=== PATIENT | male | born 1940 | race Caucasian/White ===

== ENCOUNTER 2020-07-09 00:43 | Emergency (ER) | payer MEDICARE, SELFPAY ==
--- NOTE | ~2020-07-09 | CT_ITS ---
EXAMINATION: CT ABDOMEN AND PELVIS WITHOUT CONTRAST CLINICAL INFORMATION: Left flank pain. COMPARISON: Multiple prior exams are reviewed. The most recent is from 03/28/2019. TECHNIQUE: Contiguous axial thin section helical images of the abdomen and pelvis were performed without oral or IV contrast. The data set was reformatted in the coronal and sagittal planes and reviewed on an independent workstation. DLP: 555 mGy-cm. FINDINGS: The visualized lung bases are clear. The visualized portions of the heart are unremarkable. 36 (. The liver is of normal size and attenuation without focal lesions nor intrahepatic biliary ductal dilation. A normal gallbladder is identified. There is no wall thickening or discernible pericholecystic fluid. The spleen, pancreas, adrenal glands are unremarkable. Both kidneys are of normal size and attenuation. Within the lower pole of the right kidney, there is a 4 mm nonobstructive calculus. There is no right-sided hydronephrosis. There is left grade 2 hydroureteronephrosis secondary to an obstructive 3 mm distal left ureteral calculus. There is mild left perinephric stranding. There is no abdominal free fluid. There is neither mesenteric nor retroperitoneal lymphadenopathy. There are mild manifestations of diverticulosis without evidence of diverticulitis; otherwise, unremarkable unopacified loops of small and large bowel are identified. There is no pelvic free fluid. The urinary bladder is unremarkable. There is neither pelvic nor inguinal lymphadenopathy. Bone windows: Neither sclerotic nor lytic bone lesions are identified. CT/CT abdomen pelvis wo con IMPRESSION: Left grade 2 hydroureteronephrosis secondary to an obstructive 3 mm distal left ureteral calculus. Cholelithiasis without evidence of cholecystitis. Diverticulosis without active diverticulitis. Automated exposure control (Care Dose) Adjustment of the mA and/or kv according to patient size (this includes techniques or standardized protocols for targeted exams where dose is matched to indication / reason for exam; i.e. extremities or head).
[2020-07-09 00:46] VITALS: BP 191/80; PULSE 56; RESP 18; TEMP 36.7; O2SAT 98; BMI 26.6
[2020-07-09 02:00] VITALS: BP 154/62; PULSE 52; RESP 18; TEMP 37.1; O2SAT 99
--- NOTE | 2020-07-09 02:11 | ED_ITS ---
HPI - Male Genitourinary General Chief complaint: Urogenital-Male Stated complaint: Flank pain Time Seen by Provider: 07/09/20 01:57 Source: patient Mode of arrival: ambulatory Limitations: no limitations History of Present Illness HPI Narrative: 79-year-old male came in with left flank pain, started 12 hours ago, described it as left flank sharp pain that is constant but weaning and waxing, describe pain as severe (10/10), pain was associated with nausea, nothing makes the pain worse, nothing makes the pain better. Patient had similar pain in the past but was on the right side and patient had a history of diagnosed right kidney stone. Related Data Previous Rx's Medication Instructions Recorded oxycodone 5 mg PO BID PRN #10 cap 07/09/20 Allergies Allergy/AdvReac Type Severity Reaction Status Date / Time No Known Allergies Allergy Verified 07/09/20 00:46 [No Known Allergies*] Review of Systems Review of Systems: All other systems are reviewed and are negative Constitutional: Reports as per HPI and Reports no additional constitutional complaints Eyes: Reports as per HPI and Reports no additional eye complaints Reports system reviewed and no additional complaints, except as documented Cardiovascular: Reports as per HPI and Reports no additional cardiovascular complaints Respiratory: Reports as per HPI and Reports no additional respiratory complaints Gastrointestinal: Reports as per HPI and Reports no additional gastrointestinal complaints Genitourinary: Reports no additional female genitourinary complaints Musculoskeletal: Reports no additional musculoskeletal complaints Skin/Breast: Reports system reviewed and no additional complaints, except as docu Psychiatric: Reports no additional psychiatric complaints Endocrine: Reports no additional endocrine complaints Hematologic/Lymphatic: Reports no additional hematologic/lymphatic complaints Allergic/Immunologic: Reports no additional allergic/immunologic complaints Reports system reviewed and no additional complaints, except as documented and Reports Abnormal speech present [facility] Past Medical History Medical History Kidney stones Surgical History S/P hernia repair Social History Social History Alcohol intake: never Smoking Status: Light tobacco smoker Use of substances other than those prescribed or required for medical reasons: No Advance Directives: No Advance Directives Information Provided: No Physical Exam Vital Signs: Vital Signs: Last Vital Signs Temp 98.7 F 07/09/20 02:00 Pulse 52 07/09/20 02:00 Resp 18 07/09/20 02:00 BP 154/62 H 07/09/20 02:00 Pulse Ox 99 07/09/20 02:00 Body Mass Index 26.6 Vital signs have been reviewed as normal and appeared to be correct. Blood pressure in the high range. Heart rate normal. Respiration rate normal. Temperature normal. Oxygen saturation normal. Appearance: Alert. Oriented X3. No acute distress. Head: Normal external exam. Normocephalic. Atraumatic. No Harkins signs noted. No raccoon eyes noted Eyes: PERRLA. EOMI. Conjunctiva and sclera normal. Eyelids normal. ENT: TM's Normal. Pharynx normal. Uvula midline. Moist mucous membranes. No trismus noted. No drooling noted. No muffled voice noted. Neck: Normal inspection. Neck supple. FROM. No adenopathy. Thyroid Normal. No meningeal signs. No neck mass noted. CVS: Normal heart rate and rhythm. Heart sound normal. No murmurs noted. Pulses normal throughout. Respiratory: No respiratory distress. Painless inspiration. Breath sounds normal. No wheezes/rales/rhonchi noted. Chest nontender. No accessory muscle usage noted or decreased air movement noted. Abdomen: Soft and nontender. Bowel sounds normal in all 4 quadrants. No distention noted. No organomegaly noted. No visible injury noted. Back: L CVA tenderness. Full range of motion noted. Skin: Skin warm and dry. Normal skin color. Normal skin turgor. No rashes/lesions/lacerations noted. Extremities: No lower extremity edema. Extremities exhibit normal range of motion. Extremities nontender. Neuro: Oriented X 3. No motor deficit. No sensory deficit. Reflexes normal. Course Course Course Narrative: Assessment and plan. 79-year-old male presented with left flank pain, patient had history of right kidney stone and follow up with Dr. Shukla urologist, CT is consistent with 3 mm obstructing left ureteric stone, BUN creatinine is slightly elevated from baseline for the patient, UA is not consistent with infection, patient now is comfortable able to urinate in the emergency department, no pain. I discussed with the patient at length the the importance of drinking plenty of fluids to help normalize the renal function test and forcing the renal stone out. Patient also will arrange an appointment with his urologist this week. Patient was instructed to return if the pain is uncontrollable with the pain medication. MDM - Male Genitourinary Lab Data Attestation: I reviewed the patient's lab results. Result diagrams: 07/09/20 02:07/09/20 02:27 Labs: Lab Results 07/09/20 07/09/20 07/09/20 Range/Units 02: 02: 02:27 WBC 14.5 H (4.8-10.8) X10*3/uL RBC 4.89 (4.60-5.80) X10*6/uL Hgb 15.0 (14.0-18.0) g/dl Hct 45.0 (42-52) % MCV 92.0 (80-98) fL MCH 30.7 (27.0-33.0) pg MCHC 33.3 (31.0-36.0) g/dl RDW 12.8 (11.0-16.0) % Plt Count 271 (160-400) X10*3/uL MPV 10.7 (9.4-12.4) fL Immature Gran % (Auto) 0.2 (0.0-0.4) % Neut % (Auto) 93.9 H (45-73) % Lymph % (Auto) 3.2 L (20-40) % [place] % (Auto) 2.6 (2-11) % Eos % (Auto) 0.0 (0-4) % Baso % (Auto) 0.1 (0-2) % Lymph # (Auto) 0.5 L (1.2-4.9) X10*3/uL [place] # (Auto) 0.4 (0.1-1.2) X10*3/uL Eos # (Auto) 0.0 (0.0-0.4) X10*3/uL Baso # (Auto) 0.0 (0.0-0.2) X10*3/uL Abs Immat Gran (auto) 0.03 (0.00-0.03) X10*3/uL Absolute Neuts (auto) 13.6 H (2.0-8.3) X10*3/uL Absolute Nucleated RBC 0.000 (0.0-0.012) X10*3/uL Nucleated RBC % (auto) 0.0 (0.0-0.2) /100WBC Smear Tech's Comments VERIFIED Sodium 141 (135-145) mmol/L Potassium 4.2 (3.3-5.1) mmol/L Chloride 107 (96-108) mmol/L Carbon Dioxide 23 (22-29) mmol/L Anion Gap 15 (12-20) BUN 23 H (9-16) mg/dL Creatinine 1.42 H (0.5-1.4) mg/dL Estim Creat Clear Calc 40.7 Estimated GFR 48 Random Glucose 177 H (60-115) mg/dL Calcium 8.8 (8.4-10.2) mg/dL Total Bilirubin 0.8 (0.0-1.0) mg/dL Direct Bilirubin 0.4 (0.0-0.5) mg/dL AST 18 (5-37) U/L ALT 28 (0-40) U/L Alkaline Phosphatase 76 (39-117) U/L Total Protein 6.9 (6.5-8.0) g/dL Albumin 4.4 (3.5-5.0) g/dL Lipase 9 (8-78) U/L Urine Color YELLOW Urine Appearance HAZY Urine pH 5.5 (5.0-8.0) Ur Specific [place] >= 1.030 H (1.005-1.025) Urine Protein TRACE (NEG-TRACE) MG/DL Urine Glucose (UA) NEG (NEG) MG/DL Urine Ketones 15 (NEG) MG/DL Urine Blood 3+ H (NEG) Urine Nitrite NEG (NEG) Ur Leukocyte Esterase NEG (NEG) Urine RBC 50-75 H (0) /HPF Urine WBC 1-4 (0-4) /HPF Ur Squamous Epith Cells 1+ /LPF Urine Bacteria 1+ /LPF Urine Mucus 1+ /LPF Imaging Data CT scan - abdomen: Radiologist's impression: Left grade 2 hydroureteronephrosis secondary to an obstructive 3 mm distal left ureteral calculus. Cholelithiasis without evidence of cholecystitis. Diverticulosis without active diverticulitis. Discharge Plan Discharge Clinical Impression: Renal colic on left side, Calculus of left ureter, Abnormal kidney function Patient Disposition: Home, Self-Care Instructions: Ureteral Stones (ED) Additional Instructions: Follow-up with your own urologist this week. Drink plenty of fluids to help improve your kidney function test and passing the stone. Prescriptions: New oxycodone 5 mg capsule 5 mg PO BID PRN (Reason: pain) Qty: 10 RF: 0 Referrals: López Madera MD [Primary Care Provider] - 2 days
[2020-07-09 02:32] LABS: Basophils Percent Auto 0.1 % (0-2); Imm Gran Abs Auto 0.03 X10*3/uL (0.00-0.03); Imm Gran Pct Auto 0.2 % (0.0-0.4); Lymphocytes Absolute Auto 0.5 X10*3/uL (1.2-4.9); Lymphocytes Percent Auto 3.2 % (20-40); MANUAL DIFF FLAG SCAN; Mean Corpuscular HGB Conc 33.3 g/dl (31.0-36.0); Mean Corpuscular Hemoglobin 30.7 pg (27.0-33.0); Mean Platelet Volume 10.7 fL (9.4-12.4); Monocytes Absolute Auto 0.4 X10*3/uL (0.1-1.2); Monocytes Percent Auto 2.6 % (2-11); Neutrophils Absolute Auto 13.6 X10*3/uL (2.0-8.3); Neutrophils Percent Auto 93.9 % (45-73); Platelet Count 271 X10*3/uL (160-400); Red Blood Count 4.89 X10*6/uL (4.60-5.80); Red Cell Distribution Width 12.8 % (11.0-16.0); SCAN SMEAR FLAG 1; White Blood Count 14.5 X10*3/uL (4.8-10.8)
[2020-07-09 02:33] LABS: Glucose Urine UA NEG (NEG); Leukocyte Esterase Urine NEG (NEG); Nitrite Urine NEG (NEG); PH 5.5 (5.0-8.0); Specific Gravity - Urine >= 1.030 (1.005-1.025); Urine Blood 3+ (NEG); Urine Ketones 15 MG/DL (NEG); Urine Protein TRACE MG/DL (NEG-TRACE)
[2020-07-09 02:34] LABS: Appearance Urine HAZY; Color Urine YELLOW; SLIDE REVIEW VERIFIED
[2020-07-09] MEDS: Morphine Sulfate 2 MG/ML CARTRIDGE 1 MG IVPUSH (02:36)
[2020-07-09] MEDS: Ketorolac Tromethamine 15 MG/ML VIAL IV (02:36)
[2020-07-09] MEDS: 0.9 % Sodium Chloride 1,000 ML 999 ML IVCONT (02:37)
[2020-07-09 02:44] LABS: Bacteria Urine 1+ /LPF; Mucus Urine 1+ /LPF; RBC Urine 50-75 /HPF (0); Squamous Epithelial Cell Urine 1+ /LPF
[2020-07-09 03:13] LABS: Alanine Aminotransferase 28 U/L (0-40); Albumin Level 4.4 g/dL (3.5-5.0); Alkaline Phosphatase 76 U/L (39-117); Anion Gap 15 (12-20); Aspartate Amino Transferase 18 U/L (5-37); Bilirubin Direct 0.4 mg/dL (0.0-0.5); Bilirubin Total 0.8 mg/dL (0.0-1.0); Blood Urea Nitrogen 23 mg/dL (9-16); Calcium 8.8 mg/dL (8.4-10.2); Carbon Dioxide 23 mmol/L (22-29); Chloride 107 mmol/L (96-108); Creatinine Clr Calc Pharmacy 40.7; Estimated Glomerular Filt Rate 48; Glucose Random 177 mg/dL (60-115); Lipase 9 U/L (8-78); Potassium 4.2 mmol/L (3.3-5.1); Sodium 141 mmol/L (135-145); Total Protein 6.9 g/dL (6.5-8.0)
[2020-07-09 05:47] VITALS: BP 127/64; PULSE 65; RESP 18; O2SAT 96
== END 2020-07-09 06:00 | disposition home or self-care (01) ==
PROVIDERS: Emergency Provider Emergency Medicine; PCP Internal Medicine
DX: N13.2 Hydronephrosis with renal and ureteral calculous obstruction (principal); R79.89 Other specified abnormal findings of blood chemistry; Z87.442 Personal history of urinary calculi
CPT/HCPCS: 36415; 74176; 80048; 80076; 81001; 83690; 85025; 96361; 96374; 96375; 99284; J1885; J2270

== ENCOUNTER 2020-07-10 08:20 | Emergency (ER) | payer MEDICARE, SELFPAY ==
[2020-07-10 08:57] VITALS: BP 166/68; PULSE 62; RESP 16; TEMP 37.3; O2SAT 95; BMI 26.6
--- NOTE | 2020-07-10 09:07 | ED_ITS ---
HPI - Back Pain/Injury General Chief Complaint: Back Pain/Injury Stated Complaint: kidney stone Time Seen by Provider: 07/10/20 08:49 Source: patient Mode of arrival: ambulatory Limitations: no limitations History of Present Illness HPI Narrative: 79-year-old male with a past medical history of renal colic here with left flank pain times several days. The patient tells me he was seen here yesterday and diagnosed with a left renal colic. He was prescribed oxycodone 5 mg and was referred to follow up with his urologist Dr. Shukla. Patient tells me he felt well on discharge yesterday. This morning when he woke up he had some pain and took a dose of oxycodone. 1 hour later he continued to have pain and so he called his family to bring him into the hospital. He denies any nausea or vomiting. He denies any fevers or chills or urinary symptoms. No abdominal pain. He has not spoken to his urologist yet. On arrival he is telling me that his pain is much improved. MD elicited complaint: back pain Related Data Previous Rx's Medication Instructions Recorded oxycodone 5 mg PO BID PRN #10 cap 07/09/20 oxycodone 5 mg PO Q6H PRN #5 tab 07/10/20 Allergies Allergy/AdvReac Type Severity Reaction Status Date / Time No Known Allergies Allergy Verified 07/09/20 00:46 [No Known Allergies*] Review of Systems Review of Systems: Yes all other systems are reviewed and are negative Constitutional: Constitutional: Reports no additional constitutional complaints, Denies body ache(s), Denies chills, Denies fever(s), Denies headache(s) and Denies weakness Eyes: Eyes: Reports no additional eye complaints and Denies change in vision ENT: Reports system reviewed and no additional complaints, except as documented, Denies dizziness, Denies headache(s), Denies nasal congestion, Denies nasal discharge and Denies neck pain Cardiovascular: Cardiovascular: Reports no additional cardiovascular complaints, Denies chest pain, Denies leg edema and Denies dyspnea Respiratory: Respiratory: Reports no additional respiratory complaints, Denies cough and Denies dyspnea Gastrointestinal: Gastrointestinal: Reports no additional gastrointestinal complaints, Denies abdominal pain, Denies diarrhea, Denies nausea and Denies vomiting Genitourinary: Genitourinary: Denies urinary incontinence Musculoskeletal: Musculoskeletal: Reports no additional musculoskeletal complaints, Reports back pain, Denies arthralgias, Denies joint swelling, Denies neck pain, Denies numbness and Denies tingling Integumentary/Breasts: Skin/Breast: Reports system reviewed and no additional complaints, except as docu and Denies rash Neurologic: Reports system reviewed and no additional complaints, except as documented, Denies Abnormal speech present, Denies dizziness, Denies headache(s), Denies numbness, Denies tingling and Denies weakness PMFSH Past Medical History Attestation statement: The following information was validated with the patient. Source: old records reviewed and nursing notes reviewed Medical History Kidney stones Surgical History S/P hernia repair Social History Social History Alcohol intake: never Smoking Status: Light tobacco smoker Advance Directives: No Advance Directives Information Provided: Yes Physical Exam Vital Signs: Vital Signs: Last Vital Signs Temp 99.2 F 07/10/20 08:57 Pulse 62 07/10/20 08:57 Resp 16 07/10/20 08:57 BP 166/68 H 07/10/20 08:57 Pulse Ox 95 07/10/20 08:57 Body Mass Index 26.6 Const: General: cooperative, healthy appearing, comfortable and no acute distress Orientation/consciousness: patient oriented x3 Limitations: no li mitations HENMT: Head: Yes normal to inspection Ears: hearing grossly normal bilaterally General nose exam: Normal external nose present Face and sinus: Yes normal facial exam Mouth: Normal oral and palatal mucosa present Throat: Yes posterior oropharynx normal Eyes: General: appearance normal, both eyes and all related structures Pupils: Equal, round and reactive pupils present Neck: Neck: Yes normal visual inspection Chest: Chest palpation & inspection: normal inspection of the chest Resp: Effort & Inspection: normal respiratory effort Auscultation: clear to auscultation bilaterally Cardio: Rate: regular rate Rhythm: regular rhythm Peripheral pulses: Peripheral pulses 2+ throughout GI: Inspection: Yes normal to inspection Palpation (GI): Soft to palpation and nontender Auscultation: normal bowel sounds : General: Yes CVA tenderness (mild, left ) Back/Spine/Pelvis: Back: CVA tenderness (mild, left ) Thoracic/Lumbar Spine: thoracic and lumbar spine normal to inspection Skin: General skin exam: no rashes or lesions noted Neuro: General: patient oriented x3, no focal motor deficits and normal sensation to monofilament Cranial nerves: Yes Equal, round and reactive pupils present Cognition (Neuro): normal cognition Speech: No Abnormal speech present Gait exam (Neuro): Normal gait present Motor exam (neuro): 5/5 motor strength present throughout Extrem: General: Yes normal to inspection Course Course Course Narrative: Left flank pain since this morning with recent diagnosis of left renal colic yesterday. Took an oxycodone this morning but continued to have pain so brought himself to the emergency department. On arrival he tells me the pain medicine is now working and he feels much improved. He is only telling me that he has very mild pain. Reviewed CT from yesterday 07/09 which shows left grade 2 hydroureteronephrosis secondary to an obstructive 3 mm distal left ureteral calculus. Exam is overall min with benign here today. As patient is feeling much improved I did discuss with him that he will likely pass the kidney stone on his own. I did recommend he follow up with Urology in case this does not happen. He plans to call Dr. Shukla today. I did explain to him that if he has more severe pain unrelieved with oxycodone he should return to the emergency department. He was given 10 tablets of oxycodone and is worried that this may not be enough for him. I did send in 5 more tablets to his pharmacy. Explained to him that he should only pick this up if he runs out of his oxycodone now. Reviewed additional worrisome signs and symptoms of when to return to the emergency department. Comfortable with discharge home. Discharge Plan Discharge Clinical Impression: Renal colic Patient Disposition: Home, Self-Care Instructions: Renal Colic (ED) Additional Instructions: You may take your oxycodone every 6 hrs as needed for pain. Try to keep your pain well controlled. Call Dr Shukla today for an appointment within 1-2 days Return for severe pain unrelieved with oxycodone, 2 or more vomiting episodes, fever >100.4. Prescriptions: New oxycodone 5 mg tablet 5 mg PO Q6H PRN (Reason: pain) Qty: 5 RF: 0 No Action oxycodone 5 mg capsule 5 mg PO BID PRN (Reason: pain) Qty: 10 RF: 0 Interventions: ED Discharge Assessment Last Done: 07/10/20 09:26 Discharge Date/Time: 07/10/20 09:27
== END 2020-07-10 09:27 | disposition home or self-care (01) ==
PROVIDERS: Emergency Provider Emergency Medicine; PCP Internal Medicine
DX: N13.2 Hydronephrosis with renal and ureteral calculous obstruction (principal)
CPT/HCPCS: 99283

== ENCOUNTER 2020-08-24 13:28 | Outpatient (REF) | payer MEDICARE, SELFPAY ==
[2020-08-24 14:39] LABS: Anion Gap 15 (12-20); Blood Urea Nitrogen 20 mg/dL (9-16); Calcium 9.1 mg/dL (8.4-10.2); Carbon Dioxide 25 mmol/L (22-29); Chloride 108 mmol/L (96-108); Estimated Glomerular Filt Rate > 60; Glucose Random 108 mg/dL (60-115); Potassium 4.9 mmol/L (3.3-5.1); Sodium 143 mmol/L (135-145)
== END 2020-08-24 13:29 | disposition home or self-care (01) ==
LOC: HO.LAB 13:28
PROVIDERS: PCP Internal Medicine; Visit Provider Internal Medicine
DX: N20.0 Calculus of kidney (principal); E78.00 Pure hypercholesterolemia, unspecified
CPT/HCPCS: 36415; 80048

== ENCOUNTER 2020-12-22 07:59 | Outpatient (REF) | payer MEDICARE, SELFPAY ==
[2020-12-22 09:11] LABS: MANUAL DIFF FLAG NO
[2020-12-22 09:17] LABS: Basophils Percent Auto 0.4 % (0-2); Eosinophils Absolute Auto 0.1 X10*3/uL (0.0-0.4); Eosinophils Percent Auto 1.9 % (0-4); Hematocrit 47.2 % (42-52); Hemoglobin 15.1 g/dl (14.0-18.0); Imm Gran Abs Auto 0.04 X10*3/uL (0.00-0.03); Imm Gran Pct Auto 0.6 % (0.0-0.4); Lymphocytes Absolute Auto 1.6 X10*3/uL (1.2-4.9); Lymphocytes Percent Auto 22.2 % (20-40); Mean Corpuscular Hemoglobin 29.3 pg (27.0-33.0); Mean Corpuscular Volume 91.7 fL (80-98); Monocytes Absolute Auto 0.9 X10*3/uL (0.1-1.2); Monocytes Percent Auto 11.8 % (2-11); Neutrophils Absolute Auto 4.6 X10*3/uL (2.0-8.3); Neutrophils Percent Auto 63.1 % (45-73); Platelet Count 294 X10*3/uL (160-400); Red Blood Count 5.15 X10*6/uL (4.60-5.80); Red Cell Distribution Width 13.1 % (11.0-16.0); White Blood Count 7.2 X10*3/uL (4.8-10.8)
[2020-12-22 09:52] LABS: Alanine Aminotransferase 26 U/L (0-40); Albumin Level 4.3 g/dL (3.5-5.0); Alkaline Phosphatase 85 U/L (39-117); Anion Gap 13 (12-20); Aspartate Amino Transferase 22 U/L (5-37); Bilirubin Total 0.9 mg/dL (0.0-1.0); Blood Urea Nitrogen 14 mg/dL (9-16); Calcium 9.1 mg/dL (8.4-10.2); Carbon Dioxide 24 mmol/L (22-29); Chloride 108 mmol/L (96-108); Cholesterol 173 mg/dL; Estimated Glomerular Filt Rate > 60; Glucose Fasting 100 mg/dL (60-99); HDL Cholesterol 34 mg/dL; LDL Cholesterol Calculated 111 mg/dl; Sodium 140 mmol/L (135-145); Total Protein 6.9 g/dL (6.5-8.0); Triglycerides 141 mg/dL
[2020-12-22 10:31] LABS: Glucose Urine UA NEG (NEG); Leukocyte Esterase Urine NEG (NEG); Nitrite Urine NEG (NEG); Urine Blood 1+ (NEG); Urine Ketones NEG (NEG); Urine Protein NEG (NEG-TRACE)
[2020-12-22 10:34] LABS: Appearance Urine CLEAR; Color Urine YELLOW
[2020-12-22 10:43] LABS: Squamous Epithelial Cell Urine TRACE /LPF; WBC Urine 0 /HPF (0-4)
== END 2020-12-22 08:00 | disposition home or self-care (01) ==
LOC: HO.LAB 07:59
PROVIDERS: PCP Internal Medicine; Visit Provider Internal Medicine
DX: N40.0 Benign prostatic hyperplasia without lower urinary tract symptoms (principal); K57.90 Diverticulosis of intestine, part unspecified, without perforation or abscess without bleeding; Z86.73 Personal history of transient ischemic attack (TIA), and cerebral infarction without residual deficits; Z87.442 Personal history of urinary calculi
CPT/HCPCS: 36415; 80053; 80061; 81001; 84153; 85025

== ENCOUNTER → 2021-01-26 15:08 | Outpatient (BNVA) | payer MEDICARE, SELFPAY | PROVIDERS: PCP Internal Medicine; Referring Provider Internal Medicine; Visit Provider Urology | DX: N40.1 Benign prostatic hyperplasia with lower urinary tract symptoms (principal); N13.8 Other obstructive and reflux uropathy; N20.0 Calculus of kidney; R97.20 Elevated prostate specific antigen [PSA] | CPT/HCPCS: 99202 ==

== ENCOUNTER 2021-02-20 11:25 | Outpatient (REF) | payer MEDICARE, SELFPAY ==
[2021-02-20 11:32] VITALS: BP 152/85; PULSE 62; RESP 16; TEMP 36.8; O2SAT 98
[2021-02-20 11:33] VITALS: BMI 27.1
--- NOTE | 2021-02-20 12:45 | W.PM.OPN ---
Operative Note Operative Note Date of Service: 02/20/21 Narrative: Preoperative diagnosis: Elevated PSA Postoperative diagnosis: Elevated PSA Procedure: 1. transrectal ultrasound measurement of prostate 2. transrectal ultrasound-guided pudendal nerve block 3. transrectal ultrasound-guided prostate biopsy 12 core Surgeon: Dr. Willie He Anesthetic: Local Indications for procedure: Elevated PSA 7.8 Procedure: After informed consent was verified, the patient was brought into the procedure area and lay left-hand side down on the table. Patient identity confirmed. Perioperative antibiotics confirmed. Gel was placed per rectum Ultrasound probe was placed per rectum The prostate was measured in 3 dimensions Total volume equals 100 gm There were no cystic structures and no calcifications noted and the prostate was homogeneous in nature A ultrasound-guided pudendal nerve block was performed using 10 cc of 1% lidocaine. 8 cc was placed at the base and 2 cc of the apex. A 12 core biopsy was performed with 6 cores each side. Two cores were taken at the apex, mid and base. Cores were spaced between lateral and medial. He tolerated the procedure well. Was able to ambulate to bathroom after 5 minutes. Printed instructions regarding antibiotic use and common side effects such as low-grade temperature and bleeding were given.
[2021-02-20 12:48] VITALS: BP 164/75; PULSE 60; RESP 16; O2SAT 98
== END 2021-02-20 11:26 | disposition home or self-care (01) ==
LOC: HO.MS 11:25
PROVIDERS: PCP Internal Medicine; Visit Provider Urology
PROC: (CPT 55700; principal; 2021-02-20 12:00)
DX: N40.1 Benign prostatic hyperplasia with lower urinary tract symptoms (principal); N13.8 Other obstructive and reflux uropathy; R97.20 Elevated prostate specific antigen [PSA]; N20.0 Calculus of kidney
CPT/HCPCS: 55700; 76942; 88305

== ENCOUNTER → 2021-03-08 10:25 | Outpatient (BNVA) | payer MEDICARE, SELFPAY | PROVIDERS: PCP Internal Medicine; Visit Provider Urology | DX: N40.1 Benign prostatic hyperplasia with lower urinary tract symptoms (principal); N13.8 Other obstructive and reflux uropathy | CPT/HCPCS: Q3014 ==

== ENCOUNTER 2021-08-24 08:43 | Outpatient (REF) | payer MEDICARE, SELFPAY ==
[2021-08-24 10:26] LABS: PSA,Total (Free>4and<10) 5.72 ng/mL (0.00-4.00)
[2021-08-27 10:07] LABS: Percent Free Prostate Spec Ag 19 % (calc) (>25); Prostate Specific Ag Total 5.2 ng/mL (< OR = 4.0)
== END 2021-08-24 08:44 | disposition home or self-care (01) ==
LOC: HO.LAB 08:43
PROVIDERS: PCP Internal Medicine; Visit Provider Internal Medicine
DX: Z12.5 Encounter for screening for malignant neoplasm of prostate (principal); R97.20 Elevated prostate specific antigen [PSA]
CPT/HCPCS: 36415; 84153; 84154

== ENCOUNTER 2021-11-23 07:54 | Outpatient (REF) | payer MEDICARE, SELFPAY ==
[2021-11-23 08:28] LABS: MANUAL DIFF FLAG NO
[2021-11-23 09:09] LABS: Basophils Percent Auto 0.4 % (0-2); Eosinophils Absolute Auto 0.1 X10*3/uL (0.0-0.4); Eosinophils Percent Auto 1.4 % (0-4); Hematocrit 46.4 % (42.0-52.0); Hemoglobin 15.1 g/dl (14.0-18.0); Imm Gran Abs Auto 0.03 X10*3/uL (0.00-0.03); Imm Gran Pct Auto 0.4 % (0.0-0.4); Lymphocytes Absolute Auto 1.5 X10*3/uL (1.2-4.9); Lymphocytes Percent Auto 20.7 % (20-40); Mean Corpuscular HGB Conc 32.5 g/dl (31.0-36.0); Mean Corpuscular Hemoglobin 29.8 pg (27.0-33.0); Mean Corpuscular Volume 91.7 fL (80.0-98.0); Mean Platelet Volume 10.9 fL (9.4-12.4); Monocytes Absolute Auto 0.9 X10*3/uL (0.1-1.2); Monocytes Percent Auto 12.2 % (2-11); Neutrophils Absolute Auto 4.7 x10*3/uL (2.0-8.3); Neutrophils Percent Auto 64.9 % (45-73); Platelet Count 265 X10*3/uL (160-400); Red Blood Count 5.06 X10*6/uL (4.60-5.80); Red Cell Distribution Width 13.3 % (11.0-16.0); White Blood Count 7.2 X10*3/uL (4.8-10.8)
[2021-11-23 09:35] LABS: Alanine Aminotransferase 21 U/L (0-40); Albumin Level 4.1 g/dL (3.5-5.0); Alkaline Phosphatase 83 U/L (39-117); Anion Gap 11 (12-20); Aspartate Amino Transferase 19 U/L (5-37); Blood Urea Nitrogen 15 mg/dL (9-16); Calcium 8.8 mg/dL (8.4-10.2); Carbon Dioxide 25 mmol/L (22-29); Chloride 107 mmol/L (96-108); Cholesterol 150 mg/dL; Estimated Glomerular Filt Rate > 60; Glucose Fasting 102 mg/dL (60-99); HDL Cholesterol 32 mg/dL; LDL Cholesterol Calculated 90 mg/dl; Potassium 5.3 mmol/L (3.3-5.1); Sodium 138 mmol/L (135-145); Total Protein 6.8 g/dL (6.5-8.0); Triglycerides 141 mg/dL
[2021-11-23 09:57] LABS: Prostate Specific Antigen 3.94 ng/mL (<0.05-4.0)
== END 2021-11-23 07:55 | disposition home or self-care (01) ==
LOC: HO.LAB 07:54
PROVIDERS: PCP Internal Medicine; Visit Provider Internal Medicine
DX: Z12.5 Encounter for screening for malignant neoplasm of prostate (principal); N40.0 Benign prostatic hyperplasia without lower urinary tract symptoms; G40.909 Epilepsy, unspecified, not intractable, without status epilepticus; Z86.73 Personal history of transient ischemic attack (TIA), and cerebral infarction without residual deficits; Z86.010 Personal history of colon polyps
CPT/HCPCS: 36415; 80053; 80061; 84153; 85025

== ENCOUNTER 2022-09-06 08:04 | Outpatient (REF) | payer MEDICARE, SELFPAY ==
[2022-09-06 08:25] LABS: MANUAL DIFF FLAG NO
[2022-09-06 08:44] LABS: Basophils Percent Auto 0.6 % (0-2); Eosinophils Absolute Auto 0.1 X10*3/uL (0.0-0.4); Eosinophils Percent Auto 1.6 % (0-4); Hematocrit 45.7 % (42.0-52.0); Imm Gran Abs Auto 0.03 X10*3/uL (0.00-0.03); Imm Gran Pct Auto 0.4 % (0.0-0.4); Lymphocytes Absolute Auto 1.6 X10*3/uL (1.2-4.9); Lymphocytes Percent Auto 22.2 % (20-40); Mean Corpuscular HGB Conc 32.8 g/dl (31.0-36.0); Mean Corpuscular Hemoglobin 30.3 pg (27.0-33.0); Mean Corpuscular Volume 92.3 fL (80.0-98.0); Mean Platelet Volume 10.6 fL (9.4-12.4); Monocytes Absolute Auto 0.8 X10*3/uL (0.1-1.2); Monocytes Percent Auto 11.8 % (2-11); Neutrophils Absolute Auto 4.5 x10*3/uL (2.0-8.3); Neutrophils Percent Auto 63.4 % (45-73); Platelet Count 261 X10*3/uL (160-400); Red Blood Count 4.95 X10*6/uL (4.60-5.80); Red Cell Distribution Width 12.8 % (11.0-16.0); White Blood Count 7.1 X10*3/uL (4.8-10.8)
[2022-09-06 09:37] LABS: Alanine Aminotransferase 21 U/L (0-40); Albumin Level 3.9 g/dL (3.5-5.0); Alkaline Phosphatase 79 U/L (39-117); Anion Gap 10 (12-20); Aspartate Amino Transferase 17 U/L (5-37); Bilirubin Total 1.2 mg/dL (0.0-1.0); Blood Urea Nitrogen 16 mg/dL (9-16); Calcium 9.3 mg/dL (8.4-10.2); Carbon Dioxide 27 mmol/L (22-29); Chloride 108 mmol/L (96-108); Cholesterol 149 mg/dL; Estimated Glomerular Filt Rate > 60; Glucose Random 97 mg/dL (60-115); HDL Cholesterol 30 mg/dL; LDL Cholesterol Calculated 97 mg/dl; Sodium 140 mmol/L (135-145); Total Protein 6.3 g/dL (6.5-8.0); Triglycerides 110 mg/dL
[2022-09-06 09:55] LABS: Prostate Specific Antigen Scr 3.93 ng/mL (<0.05-4.0)
== END 2022-09-06 08:05 | disposition home or self-care (01) ==
LOC: HO.LAB 08:04
PROVIDERS: PCP Internal Medicine; Visit Provider Internal Medicine
DX: Z00.00 Encounter for general adult medical examination without abnormal findings (principal); Z12.5 Encounter for screening for malignant neoplasm of prostate
CPT/HCPCS: 36415; 80053; 80061; 84153; 85025

== ENCOUNTER 2022-12-16 11:53 | Outpatient (REF) | payer MEDICARE, SELFPAY ==
[2022-12-16 13:15] LABS: MANUAL DIFF FLAG NO
[2022-12-16 13:24] LABS: Basophils Absolute Auto 0.1 X10*3/uL (0.0-0.2); Basophils Percent Auto 0.6 % (0-2); Eosinophils Absolute Auto 0.1 X10*3/uL (0.0-0.4); Eosinophils Percent Auto 0.6 % (0-4); Hematocrit 46.7 % (42.0-52.0); Hemoglobin 15.2 g/dl (14.0-18.0); Imm Gran Abs Auto 0.03 X10*3/uL (0.00-0.03); Imm Gran Pct Auto 0.4 % (0.0-0.4); Lymphocytes Absolute Auto 1.4 X10*3/uL (1.2-4.9); Lymphocytes Percent Auto 17.5 % (20-40); Mean Corpuscular HGB Conc 32.5 g/dl (31.0-36.0); Mean Corpuscular Volume 92.3 fL (80.0-98.0); Mean Platelet Volume 11.6 fL (9.4-12.4); Monocytes Absolute Auto 0.8 X10*3/uL (0.1-1.2); Monocytes Percent Auto 10.2 % (2-11); Neutrophils Absolute Auto 5.5 x10*3/uL (2.0-8.3); Neutrophils Percent Auto 70.7 % (45-73); Platelet Count 270 X10*3/uL (160-400); Red Blood Count 5.06 X10*6/uL (4.60-5.80); Red Cell Distribution Width 13.1 % (11.0-16.0); White Blood Count 7.8 X10*3/uL (4.8-10.8)
[2022-12-16 13:37] LABS: Anion Gap 11 (12-20); Blood Urea Nitrogen 17 mg/dL (9-16); C Reactive Protein 0.18 mg/dL (< or = 0.50); Calcium 9.5 mg/dL (8.4-10.2); Carbon Dioxide 27 mmol/L (22-29); Chloride 110 mmol/L (96-108); Estimated Glomerular Filt Rate > 60; Glucose Random 107 mg/dL (60-115); Potassium 4.2 mmol/L (3.3-5.1); Sodium 144 mmol/L (135-145)
[2022-12-16 14:21] LABS: Erythrocyte Sedimentation Rate 2 MM/HR (0-15)
== END 2022-12-16 11:54 | disposition home or self-care (01) ==
LOC: HO.10HDL 11:53
PROVIDERS: Visit Provider Internal Medicine
DX: G40.909 Epilepsy, unspecified, not intractable, without status epilepticus (principal); Z86.73 Personal history of transient ischemic attack (TIA), and cerebral infarction without residual deficits; M79.641 Pain in right hand; M79.642 Pain in left hand
CPT/HCPCS: 36415; 80048; 82550; 85025; 85652; 86140

== ENCOUNTER 2023-03-26 10:27 | Outpatient (REF) | payer MEDICARE, SELFPAY ==
[2023-03-26 13:17] LABS: MANUAL DIFF FLAG NO
[2023-03-26 13:21] LABS: Basophils Percent Auto 0.4 % (0-2); Eosinophils Absolute Auto 0.1 X10*3/uL (0.0-0.4); Eosinophils Percent Auto 1.5 % (0-4); Hemoglobin 15.3 g/dl (14.0-18.0); Imm Gran Abs Auto 0.03 X10*3/uL (0.00-0.03); Imm Gran Pct Auto 0.4 % (0.0-0.4); Lymphocytes Absolute Auto 1.6 X10*3/uL (1.2-4.9); Lymphocytes Percent Auto 21.8 % (20-40); Mean Corpuscular HGB Conc 33.3 g/dl (31.0-36.0); Mean Corpuscular Hemoglobin 30.2 pg (27.0-33.0); Mean Corpuscular Volume 90.7 fL (80.0-98.0); Mean Platelet Volume 11.1 fL (9.4-12.4); Monocytes Absolute Auto 0.9 X10*3/uL (0.1-1.2); Monocytes Percent Auto 11.8 % (2-11); Neutrophils Absolute Auto 4.8 x10*3/uL (2.0-8.3); Neutrophils Percent Auto 64.1 % (45-73); Platelet Count 280 X10*3/uL (160-400); Red Blood Count 5.07 X10*6/uL (4.60-5.80); White Blood Count 7.5 X10*3/uL (4.8-10.8)
[2023-03-26 13:46] LABS: Alanine Aminotransferase 21 U/L (0-40); Albumin Level 4.1 g/dL (3.5-5.0); Alkaline Phosphatase 78 U/L (39-117); Anion Gap 13 (12-20); Aspartate Amino Transferase 21 U/L (5-37); Bilirubin Total 0.7 mg/dL (0.0-1.0); Blood Urea Nitrogen 16 mg/dL (9-16); Calcium 9.3 mg/dL (8.4-10.2); Carbon Dioxide 24 mmol/L (22-29); Chloride 107 mmol/L (96-108); Cholesterol 149 mg/dL (<200); Estimated Glomerular Filt Rate > 60; Glucose Random 98 mg/dL (60-115); Potassium 4.5 mmol/L (3.3-5.1); Sodium 139 mmol/L (135-145); Total Protein 7.1 g/dL (6.5-8.0)
[2023-03-26 14:07] LABS: Prostate Specific Antigen Scr 6.13 ng/mL (<0.05-4.0)
[2023-03-26 14:20] LABS: Appearance Urine Clear; Color Urine Yellow; Glucose Urine UA Negative (Negative); Leukocyte Esterase Urine Negative (Negative); Nitrite Urine Negative (Negative); PH 6.5 (5.0-9.0); Specific Gravity - Urine 1.025 (1.005-1.025); UMIC TRIGGER UA YES; Urine Blood Trace (Negative); Urine Ketones Negative (Negative); Urine Protein Negative (Neg-Trace)
[2023-03-26 14:33] LABS: Bacteria Urine None Seen (None Seen); Hyaline Casts Urine 0-2 /LPF (0-2); RBC Urine 0-2 /HPF (0-2); Squamous Epithelial Cell Urine 0-2 /HPF (0-2); WBC Urine 0-5 /HPF (0-5)
== END 2023-03-26 10:28 | disposition home or self-care (01) ==
LOC: HO.10HDL 10:27
PROVIDERS: Visit Provider Internal Medicine
DX: K57.90 Diverticulosis of intestine, part unspecified, without perforation or abscess without bleeding (principal); Z86.73 Personal history of transient ischemic attack (TIA), and cerebral infarction without residual deficits; Z87.442 Personal history of urinary calculi; Z12.5 Encounter for screening for malignant neoplasm of prostate
CPT/HCPCS: 36415; 80053; 81001; 81003; 82465; 84153; 85025

== ENCOUNTER 2023-09-12 09:01 | Outpatient (REF) | payer MEDICARE, SELFPAY | END 2023-09-12 09:02 | disposition home or self-care (01) | LOC: HO.10HDL 09:01 | PROVIDERS: Visit Provider Internal Medicine | DX: Z12.5 Encounter for screening for malignant neoplasm of prostate (principal); R97.20 Elevated prostate specific antigen [PSA] | CPT/HCPCS: 36415; 84153 ==

== ENCOUNTER 2024-02-20 07:53 | Outpatient (REF) | payer MEDICARE, SELFPAY ==
[2024-02-20 08:03] LABS: MANUAL DIFF FLAG NO
[2024-02-20 08:14] LABS: Basophils Absolute Auto 0.1 X10*3/uL (0.0-0.2); Basophils Percent Auto 0.7 % (0-2); Eosinophils Absolute Auto 0.1 X10*3/uL (0.0-0.4); Eosinophils Percent Auto 1.5 % (0-4); Hematocrit 45.6 % (42.0-52.0); Imm Gran Abs Auto 0.03 X10*3/uL (0.00-0.03); Imm Gran Pct Auto 0.4 % (0.0-0.4); Lymphocytes Absolute Auto 1.6 X10*3/uL (1.2-4.9); Lymphocytes Percent Auto 22.7 % (20-40); Mean Corpuscular HGB Conc 32.9 g/dl (31.0-36.0); Mean Corpuscular Hemoglobin 30.7 pg (27.0-33.0); Mean Corpuscular Volume 93.4 fL (80.0-98.0); Mean Platelet Volume 10.5 fL (9.4-12.4); Monocytes Absolute Auto 0.9 X10*3/uL (0.1-1.2); Monocytes Percent Auto 12.7 % (2-11); Neutrophils Absolute Auto 4.3 x10*3/uL (2.0-8.3); Platelet Count 265 X10*3/uL (160-400); Red Blood Count 4.88 X10*6/uL (4.60-5.80); White Blood Count 6.9 X10*3/uL (4.8-10.8)
[2024-02-20 08:45] LABS: Alanine Aminotransferase 23 U/L (0-40); Alkaline Phosphatase 85 U/L (39-117); Anion Gap 9 (12-20); Aspartate Amino Transferase 21 U/L (5-37); Bilirubin Total 1.2 mg/dL (0.0-1.0); Blood Urea Nitrogen 16 mg/dL (9-16); Calcium 8.6 mg/dL (8.4-10.2); Carbon Dioxide 26 mmol/L (22-29); Chloride 111 mmol/L (96-108); Cholesterol 134 mg/dL (<200); Estimated Glomerular Filt Rate > 60; Glucose Fasting 102 mg/dL (60-99); HDL Cholesterol 32 mg/dL (>40); LDL Cholesterol Calculated 84 mg/dL (<100); Potassium 3.8 mmol/L (3.3-5.1); Sodium 142 mmol/L (135-145); Total Protein 6.6 g/dL (6.5-8.0); Triglycerides 92 mg/dL (<150)
== END 2024-02-20 07:54 | disposition home or self-care (01) ==
LOC: HO.LAB 07:53
PROVIDERS: PCP Internal Medicine; Visit Provider Internal Medicine
DX: N40.1 Benign prostatic hyperplasia with lower urinary tract symptoms (principal); Z86.73 Personal history of transient ischemic attack (TIA), and cerebral infarction without residual deficits
CPT/HCPCS: 36415; 80053; 80061; 85025

== ENCOUNTER 2024-05-19 08:22 | Outpatient (REF) | payer MEDICARE, SELFPAY ==
[2024-05-19 08:50] LABS: MANUAL DIFF FLAG NO
[2024-05-19 09:58] LABS: Basophils Absolute Auto 0.1 X10*3/uL (0.0-0.2); Basophils Percent Auto 0.8 % (0-2); Eosinophils Absolute Auto 0.1 X10*3/uL (0.0-0.4); Eosinophils Percent Auto 1.1 % (0-4); Hemoglobin 14.9 g/dl (14.0-18.0); Imm Gran Abs Auto 0.03 X10*3/uL (0.00-0.03); Imm Gran Pct Auto 0.5 % (0.0-0.4); Lymphocytes Absolute Auto 1.5 X10*3/uL (1.2-4.9); Lymphocytes Percent Auto 23.7 % (20-40); Mean Corpuscular HGB Conc 33.1 g/dl (31.0-36.0); Mean Corpuscular Hemoglobin 30.2 pg (27.0-33.0); Mean Corpuscular Volume 91.3 fL (80.0-98.0); Mean Platelet Volume 10.7 fL (9.4-12.4); Monocytes Absolute Auto 0.8 X10*3/uL (0.1-1.2); Monocytes Percent Auto 12.8 % (2-11); Neutrophils Absolute Auto 3.8 x10*3/uL (2.0-8.3); Neutrophils Percent Auto 61.1 % (45-73); Platelet Count 278 X10*3/uL (160-400); Red Blood Count 4.93 X10*6/uL (4.60-5.80); Red Cell Distribution Width 13.1 % (11.0-16.0); White Blood Count 6.2 X10*3/uL (4.8-10.8)
[2024-05-19 10:23] LABS: Alanine Aminotransferase 23 U/L (0-40); Alkaline Phosphatase 80 U/L (39-117); Anion Gap 8 (12-20); Aspartate Amino Transferase 21 U/L (5-37); Bilirubin Total 0.8 mg/dL (0.0-1.0); Blood Urea Nitrogen 16 mg/dL (9-16); Calcium 8.5 mg/dL (8.4-10.2); Carbon Dioxide 25 mmol/L (22-29); Chloride 110 mmol/L (96-108); Cholesterol 127 mg/dL (<200); Estimated Glomerular Filt Rate > 60; Glucose Random 98 mg/dL (60-115); Sodium 139 mmol/L (135-145); Total Protein 6.7 g/dL (6.5-8.0)
== END 2024-05-19 08:23 | disposition home or self-care (01) ==
LOC: HO.LAB 08:22
PROVIDERS: PCP Internal Medicine; Visit Provider Internal Medicine
DX: N40.0 Benign prostatic hyperplasia without lower urinary tract symptoms (principal); K57.92 Diverticulitis of intestine, part unspecified, without perforation or abscess without bleeding
CPT/HCPCS: 36415; 80053; 82465; 85025

== ENCOUNTER 2024-10-22 13:19 | Outpatient (AMB) | payer MEDICARE, SELFPAY ==
--- NOTE | 2024-10-22 13:06 | MHC.PC.OV ---
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 Accompanied by: Self / Same As Patient Allergies No Known Allergies [No Known Allergies*] Allergy (Verified 10/22/24 13:12) Tobacco use date assessed: 10/22/24 Fall risk assessment: No Falls in past year Last assessed Fall Risk: 10/22/24 Dental Screening Dental Screen Date: 10/22/24 Did you have a dental visit in the last 12 months?: Yes Did you have a dental problem in the last 6 months where you did not have access to dental care?: No HPI HPI Comments History of Present Illness Details The patient is an 83 year old male with past medical history of CVA like symptoms (dysarthria), seizure disorder, BPH, diverticulosis, history of colon polys presenting for follow up. Last seen by pcp in May. Neuro: On keppra for seizure prophylaxis. Following with Dr Melara. Had CT scan and MRI. Follows with urology for elevated PSA and BPH. On finasteride. Had ultrasound and following up with Dr Sheldon to look at kidneys and bladder. ROS CONSTITUTIONAL: Denies weight loss, fever and chills. HEENT: Denies changes in vision and hearing. RESPIRATORY: Denies SOB and cough. CV: Denies palpitations and CP GI: Denies abdominal pain, nausea, vomiting and diarrhea. : Denies dysuria and urinary frequency. MSK: Denies new myalgia and joint pain. SKIN: Denies rash and pruritus. NEUROLOGICAL: Denies headache PSYCHIATRIC: Denies recent changes in mood. PHYSICAL EXAM: GENERAL: Alert and oriented x 3. NAD EYES: EOMI. Anicteric. HENT: Moist mucous membranes. No scleral icterus. No cervical lymphadenopathy. LUNGS: Clear to auscultation bilaterally. CARDIOVASCULAR: Regular rate and rhythm. No murmur. No JVD. ABDOMEN: Soft, non-tender +bs EXTREMITIES: No edema. Non-tender. SKIN: No rashes or lesions. Warm. NEUROLOGIC: No focal neurological deficits. CN II-XII grossly intact PSYCHIATRIC: Cooperative. Appropriate mood and affect [facility] Medical History Kidney stones Surgical History S/P hernia repair Family History Mother No problems noted. Father No problems noted. Social History Housing: House Alcohol intake: never Patient Tobacco Use Status: Former Tobacco user e-Cigarette/Vaping Use: Former Use service: No Current occupational status: employed Cognitive needs: No Hearing needs: No Vision needs: Yes (rx glasses) Questionnaire PHQ-9 Over the last 2 weeks, how often have you been bothered by any of the following problems? 1. Little interest or pleasure in doing things: not at all 2. Feeling down, depressed, or hopeless: not at all 3. Trouble falling or staying asleep, or sleeping too much: not at all 4. Feeling tired or having little energy: not at all 5. Poor appetite or overeating: not at all 6. Feeling bad about yourself - or that you are a failure or have let yourself or your family down: not at all 7. Trouble concentrating on things, such as reading the newspaper or watching television: not at all 8. Moving or speaking so slowly that other people could have noticed. Or the opposite - being so fidgety or restless that you have been moving around a lot more than usual: not at all 9. Thoughts that you would be better off or of hurting yourself in some way: not at all Total score: 0 Depression Screening Interpretation: Negative Depression Screening Done: Yes 18192 - PHQ-9 Billing: Yes Source: Developed by Drs. Santos Kruger, Batsheva Landa, Danilo Pathak and colleagues, with an educational marcio from [employer]. Thrive Questionnaire Date Thrive assessed: 10/22/24 I am a: Patient Within the past 12 months, did the food you bought not last and you didn't have the money to get more?: Never true Within the past 12 months, did you worry whether your food would run out before you got money to buy more?: Never true Do you have trouble paying for medicines?: No Do you have trouble getting transportation to medical appointments?: No Do you have trouble paying your heating and electricity bill?: No Do you have trouble taking care of your child, family member or friend?: No Do you have trouble with day-to-day activities such as bathing, preparing meals, shopping, managing finances, etc.?: No Are you currently unemployed and looking for a job?: No Are you interested in more education?: No THRIVE Score: 0 AUDIT C Alcohol Use Questionnaire (AUDIT-C) 1. How often do you have a drink containing alcohol?: Never 3. How often do you have six or more drinks on one occasion?: Never Total Score: 0 TWILA-7 AMB Questionnaire TWILA-7 Date TWILA - 7 assessed: 10/22/24 Feeling nervous, anxious, or on edge: 0 = Not at all Not being able to stop or control worryin = Not at all Worrying too much about different things: 0 = Not at all Trouble relaxin = Not at all Being so restless that it is hard to sit still: 0 = Not at all Becoming easily annoyed or irritable: 0 = Not at all Feeling afraid as if something awful might happen: 0 = Not at all Total TWILA-7 score (0-4 normal; 5-9 mild; 10-14 moderate; 15-21 severe): 0 Source: Developed by Drs. Santos Kruger, Batsheva Landa, Danilo Pathak and colleagues, with an educational marcio from [employer]. Physical exam (Primary Care) Vital Signs: Last Vital Signs Temp 97.1 F 10/22/24 13:22 Pulse 63 10/22/24 13:22 BP 136/78 10/22/24 13:22 Pulse Ox 99 10/22/24 13:22 Oxygen Delivery Method Room Air 10/22/24 13:22 BMI result Body Mass Index 30.9 Tobacco/Smoking Status: Tobacco use Status Tobacco use date assessed 10/22/24 10/22/24 13:14 Patient Tobacco Use Status Former Tobacco user 10/22/24 13:31 e-Cigarette/Vaping Use Former Use 10/22/24 13:31 PHQ-9: PHQ-9 Score PHQ-9: Total score 0 10/24/24 18:49 Depression Screening Interpretation: Negative Thrive Assessment: Date of Thrive Assessment Date Thrive assessed 10/22/24 10/22/24 13:14 Coding Level of Care Code New Pt Level 4 (06926) Complex EM visit Add On G2211 Diagnoses BPH w urinary obs/LUTS N40.1; N13.8 Elevated PSA R97.20 Kidney stones N20.0 Additional Codes PHQ-9 - 76479 - PHQ-9 Billing: Yes ([id number]) Assessment & Plan Assessment & Plan (1) BPH w urinary obs/LUTS: Code(s): N40.1 - Benign prostatic hyperplasia with lower urinary tract symptoms; N13.8 - Other obstructive and reflux uropathy Category: Medical (2) Elevated PSA: Code(s): R97.20 - Elevated prostate specific antigen [PSA] Category: Medical (3) Kidney stones: Code(s): N20.0 - Calculus of kidney Category: Medical Plan 83 year old to establish care past medical, surgical, social reviewed Chronic medical conditions stable Labs ordered Orders: Orders Complete Blood Count Auto Diff 5 Months N13.8 - Other obstructive and reflux uropathy, N20.0 - Calculus of kidney, N40.1 - Benign prostatic hyperplasia with lower urinary tract symptoms, R97.20 - Elevated prostate specific antigen [PSA], Z13.0 - Encounter for screening for diseases of the blood and blood-forming organs and certain disorders involving the immune mechanism, Z13.228 - Encounter for screening for other metabolic disorders Comprehensive Met. Panel 5 Months N13.8 - Other obstructive and reflux uropathy, N20.0 - Calculus of kidney, N40.1 - Benign prostatic hyperplasia with lower urinary tract symptoms, R97.20 - Elevated prostate specific antigen [PSA], Z13.0 - Encounter for screening for diseases of the blood and blood-forming organs and certain disorders involving the immune mechanism, Z13.228 - Encounter for screening for other metabolic disorders Lipid Panel 5 Months N13.8 - Other obstructive and reflux uropathy, N20.0 - Calculus of kidney, N40.1 - Benign prostatic hyperplasia with lower urinary tract symptoms, R97.20 - Elevated prostate specific antigen [PSA], Z13.0 - Encounter for screening for diseases of the blood and blood-forming organs and certain disorders involving the immune mechanism, Z13.228 - Encounter for screening for other metabolic disorders Hemoglobin A1c 5 Months N13.8 - Other obstructive and reflux uropathy, N20.0 - Calculus of kidney, N40.1 - Benign prostatic hyperplasia with lower urinary tract symptoms, R97.20 - Elevated prostate specific antigen [PSA], Z13.0 - Encounter for screening for diseases of the blood and blood-forming organs and certain disorders involving the immune mechanism, Z13.228 - Encounter for screening for other metabolic disorders
[2024-10-22 13:22] VITALS: BP 136/78; PULSE 63; TEMP 36.2; O2SAT 99; BMI 30.9
== END 2024-10-22 13:46 | disposition home or self-care (01) ==
LOC: HO.HMCHD 13:20
PROVIDERS: PCP Internal Medicine; Visit Provider Internal Medicine
DX: N40.1 Benign prostatic hyperplasia with lower urinary tract symptoms (principal); N13.8 Other obstructive and reflux uropathy; R97.20 Elevated prostate specific antigen [PSA]; N20.0 Calculus of kidney

== ENCOUNTER → 2024-10-22 13:19 | Outpatient (BNVA) | payer MEDICARE, SELFPAY | PROVIDERS: PCP Internal Medicine; Visit Provider Internal Medicine | DX: N40.1 Benign prostatic hyperplasia with lower urinary tract symptoms (principal); G40.909 Epilepsy, unspecified, not intractable, without status epilepticus; K57.90 Diverticulosis of intestine, part unspecified, without perforation or abscess without bleeding; N13.8 Other obstructive and reflux uropathy; R97.20 Elevated prostate specific antigen [PSA]; N20.0 Calculus of kidney; Z86.0100 Personal history of colon polyps, unspecified | CPT/HCPCS: 96127; 99202 ==

== ENCOUNTER 2025-04-22 11:15 | Outpatient (AMB) | payer MEDICARE, SELFPAY ==
--- NOTE | 2025-04-22 10:43 | A.OFFPC_ITS ---
Vital Signs 04/22/25 11:23 Height 5 ft 4 in Weight 174 lb BMI 29.9 BP 128/72 Blood Pressure Location Rt brachial Position Sitting Pulse 65 Pulse Source Pulse Oximeter Temp 97.2 F Temp Source Temporal Artery Scan Pulse Oximetry (%) 99 Oxygen Delivery Method Room Air Intake Visit Reasons: Annual PE Accompanied by: Self / Same As Patient Allergies No Known Allergies (No Known Allergies*) Allergy (Verified 10/22/24 13:12) Medication List - Last Reconciled 04/22/25 by Erick Mai MD finasteride 5 mg PO DAILY levetiracetam 250 mg PO Q12H 90 days Tobacco use date assessed: 04/22/25 Fall risk assessment: No Falls in past year Last assessed Fall Risk: 04/22/25 Dental Screening Dental Screen Date: 04/22/25 Did you have a dental visit in the last 12 months?: Yes Did you have a dental problem in the last 6 months where you did not have access to dental care?: No HPI HPI Comments History of Present Illness Details History of Present Illness The patient is an 84 year old individual presenting for an annual physical examination. The patient reports a history of a single episode of transient aphasia approximately 15 years ago, during which the patient's late could not understand what was being said. 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 The patient was started on Keppra 250 mg twice daily and has had no recurrence of symptoms since. The patient also has a history of prostate issues, for which the patient takes finasteride 5 mg. The patient reports occasional pressure in the forehead, which the patient attributes to nervousness or anxiety and occurs during times of stress. The patient is very active, running three to five miles four days a week. The patient is . The patient received the first two doses of the COVID-19 vaccine when it was initially released. Annual blood work has not been completed in the past year. Medical History: - Seizure disorder, diagnosed jennifer pacheco 15 years ago after an episode of transient aphasia. - Benign prostatic hyperplasia - Tension headaches, associated with str ess. Medications: - Finasteride 5 mg daily for prostate is sues. - Keppra (levetiracetam) 250 mg twice da william for seizure disorder. Diagnostic Results: - Tests: MRI with and without contrast o f the brain was performed approximately 15 years ago; results were described as a congenital finding. - Labs: No lab results are available fro m the past year. Social History - Employment: The patient is still worki . - Exercise: The patient reports being ve ry active, running three to five miles four days a week. - Marital Status: The patient is for the last 12 years. FORMERLY [facility], [facility]–1983 Medical History (Updated 04/22/25 @ 11:47 by Erick Mai MD) Annual physical exam Tension headache BPH NOS w/o ur obs/LUTS Seizure disorder Kidney stones Surgical History (Updated 04/21/25 @ 16:04 by Chio Bull) History of colonoscopy (~07/01/14) S/P hernia repair Family History (Updated 04/22/25 @ 11:28 by Blanca Monreal MA) Mother No problems noted. Father No problems noted. Social History Housing: House Alcohol intake: never Patient Tobacco Use Status: Never used Tobacco e-Cigarette/Vaping Use: Never Used service: No Current occupational status: employed Cognitive needs: No Hearing needs: No Vision needs: Yes (rx glasses) Questionnaire PHQ-9 Over the last 2 weeks, how often have you been bothered by any of the following problems? 1. Little interest or pleasure in doing things: not at all 2. Feeling down, depressed, or hopeless: not at all 3. Trouble falling or staying asleep, or sleeping too much: not at all 4. Feeling tired or having little energy: not at all 5. Poor appetite or overeating: not at all 6. Feeling bad about yourself - or that you are a failure or have let yourself or your family down: not at all 7. Trouble concentrating on things, such as reading the newspaper or watching television: not at all 8. Moving or speaking so slowly that other people could have noticed. Or the opposite - being so fidgety or restless that you have been moving around a lot more than usual: not at all 9. Thoughts that you would be better off or of hurting yourself in some way: not at all Total score: 0 Depression Screening Interpretation: Negative Depression Screening Done: Yes 35815 - PHQ-9 Billing: Yes Source: Developed by Drs. Santos Kruger, Batsheva Landa, Danilo Pathak and colleagues, with an educational marcio from [employer]. Thrive Questionnaire Date Thrive assessed: 04/22/25 I am a: Patient What is your living situation today?: I have a steady place to live Within the past 12 months, did the food you bought not last and you didn't have the money to get more?: Never true Within the past 12 months, did you worry whether your food would run out before you got money to buy more?: Never true Do you have trouble paying for medicines?: No Do you have trouble getting transportation to medical appointments?: No Do you have trouble paying your heating and electricity bill?: No Do you have trouble taking care of your child, family member or friend?: No Do you have trouble with day-to-day activities such as bathing, preparing meals, shopping, managing finances, etc.?: No Are you currently unemployed and looking for a job?: No Are you interested in more education?: No THRIVE Score: 0 AUDIT C Alcohol Use Questionnaire (AUDIT-C) 1. How often do you have a drink containing alcohol?: Never 3. How often do you have six or more drinks on one occasion?: Never Total Score: 0 Score Reviewed/Action Taken: Yes TWILA-7 AMB Questionnaire TWILA-7 Date TWILA - 7 assessed: 04/22/25 Feeling nervous, anxious, or on edge: 0 = Not at all Not being able to stop or control worryin = Not at all Worrying too much about different things: 0 = Not at all Trouble relaxin = Not at all Being so restless that it is hard to sit still: 0 = Not at all Becoming easily annoyed or irritable: 0 = Not at all Feeling afraid as if something awful might happen: 0 = Not at all Total TWILA-7 score (0-4 normal; 5-9 mild; 10-14 moderate; 15-21 severe): 0 Source: Developed by Drs. Santos Kruger, Danilo Schaefer and colleagues, with an educational marcio from [employer]. TWILA-7 Assessment Billing TWILA-7 Assessment Tool: TWILA-7 Assessment 28067 Review of Systems Narrative Review of Systems - Constitutional: Reports feeling good. - Neurological: Reports occasional pressure in the forehead, which the patient associates with stress or anxiety. - Genitourinary: Reports normal urination. - Gastrointestinal: Reports normal bowel movements. Denies abdominal pain. All systems reviewed & are unremarkable except as reviewed in HPI and above Physical exam (Primary Care) Vital Signs: Last Vital Signs Temp 97.2 F 04/22/25 11:23 Pulse 65 04/22/25 11:23 BP 128/72 04/22/25 11:23 Pulse Ox 99 04/22/25 11:23 Oxygen Delivery Method Room Air 04/22/25 11:23 BMI result Body Mass Index 29.9 Tobacco/Smoking Status: Tobacco use Status Tobacco use date assessed 04/22/25 04/22/25 10:55 Patient Tobacco Use Status Never used Tobacco 04/22/25 11:29 e-Cigarette/Vaping Use Never Used 04/22/25 11:29 Depression Screening Interpretation: Negative Thrive Assessment: Date of Thrive Assessment Date Thrive assessed 04/22/25 04/22/25 10:55 Narrative Physical Exam General: +Alert and oriented, Well nourished, No acute distress. Eye: Pupils are equal, round and reactive to light, Intact accommodation, Extraocular movements are intact, Normal conjunctiva, Vision unchanged. HENT: Normocephalic, Atraumatic, Tympanic membranes are clear, Normal hearing, Oral mucosa is moist, No pharyngeal erythema, Ear canals patent. Respiratory: Lungs CTA bilaterally, No wheeze, Respirations are non-labored. Cardiovascular: Regular rate, Regular rhythm, S1 auscultated, S2 auscultated, No murmur, Good pulses equal in all extremities, Normal peripheral perfusion, No edema. Gastrointestinal: Soft, Non-tender, Non-distended, Normal bowel sounds, No organomegaly. Musculoskeletal: Normal range of motion, Normal strength, No tenderness, No swelling, No deformity, Normal gait. Integumentary: Warm, Dry, [place], Intact. Neurologic: Alert, Oriented, Normal sensory, Normal motor function, No focal defects, Cranial Nerves II-XII are grossly intact, Normal deep tendon reflexes. Psychiatric: Cooperative, Appropriate mood & affect, Normal judgment, Occasional pressure in forehead possibly due to stress or anxiety. Coding Level of Care Code Est Pt Level 4 (34188) Est Pt Prev Care >65y(21896) Diagnoses Seizure disorder G40.909 BPH NOS w/o ur obs/LUTS N40.0 Tension headache G44.209 Annual physical exam Z00.00 Additional Codes PHQ-9 - 89023 - PHQ-9 Billing: Yes ([id number]) TWILA-7 Assessment Billing - TWILA-7 Assessment Tool: TWILA-7 Assessment 77746 ([id number]) Comment [id number] Assessment & Plan Assessment & Plan (1) Seizure disorder: Comment: - The patient's seizure disorder is well-controlled on Keppra 250 mg twice daily, with no reported episodes since initiation of therapy 15 years ago. - The plan is to continue the current medication regimen. Code(s): G40.909 - Epilepsy, unspecified, not intractable, without status epilepticus Category: Medical (2) BPH NOS w/o ur obs/LUTS: Comment: - This condition is stable and managed with finasteride. - The plan is to continue the current treatment Code(s): N40.0 - Benign prostatic hyperplasia without lower urinary tract symptoms Category: Medical (3) Tension headache: Comment: - The patient experiences occasional forehead pressure, likely related to stress. - Reassurance was provided. - The patient was advised to use Tylenol as needed for significant headaches. Code(s): G44.209 - Tension-type headache, unspecified, not intractable Category: Medical (4) Annual physical exam: Comment: - The patient is due for an annual physical and preventive care. - An order for routine blood work will be resubmitted for the patient to complete today. - The patient is advised to receive the seasonal influenza and updated COVID-19 vaccines. - The patient is encouraged to maintain an active lifestyle. - A follow-up appointment is scheduled for six months, and the patient will be contacted if lab results are abnormal. Code(s): Z00.00 - Encounter for general adult medical examination without abnormal findings Category: Medical Plan: Health Maintenance: - Lifestyle: The patient is physically active, running 3-5 miles four days a week, and is encouraged to continue. - Laboratory Screening: A request for annual blood work will be submitted. - Immunizations: Advised to obtain the seasonal influenza vaccine and an updated COVID-19 vaccine. - Follow-up: A return visit is scheduled for six months. Patient was informed and verbally consented to the use of an ambient scribe for clinic note documentation during this visit. Vital signs reviewed. Comprehensive history, review of systems, and physical exam completed. Medications, allergies, and problem list reviewed and updated. Counseling provided on nutrition, regular exercise, sleep hygiene, and moderation of alcohol use. Discussed age-appropriate screenings (mammogram, colonoscopy, Pap, bone density) and immunizations (flu, COVID, shingles, Tdap). Screened for depression, fall risk, and home safety; no current concerns. Discussed stress management, dental and vision care, and importance of ongoing preventive follow-up. Routine labs ordered for metabolic and lipid screening. Patient educated on healthy lifestyle and agrees with the plan. Plan I conducted an annual physical exam with the patient today. We reviewed the patient's medical history, including a seizure disorder well-controlled with Keppra and prostate issues managed with finasteride; I recommended continuing these medications. I addressed the patient's concern about occasional forehead pressure, explaining it is likely a benign tension headache related to stress and can be managed with Tylenol if needed. I noted that annual blood work had not been done and re-entered the request, instructing the patient to go to the lab today. I strongly advised the patient to get an updated COVID-19 vaccine and the seasonal flu shot. I commended the patient for an excellent level of physical activity and encouraged its continuation. I informed the patient that we would establish contact if any lab results are abnormal and arranged for a follow-up visit in six months. Orders: Orders Comprehensive Met. Panel Today Z00.00 - Encounter for general adult medical examination without abnormal findings Lipid Panel Today Z00.00 - Encounter for general adult medical examination without abnormal findings TSH reflex Free T4 Today Z00.00 - Encounter for general adult medical examination without abnormal findings Vitamin D 25-OH Total Today Z00.00 - Encounter for general adult medical examination without abnormal findings Microalbumin, Random (w Creat) Today Z00.00 - Encounter for general adult medical examination without abnormal findings Complete Blood Count Auto Diff Today Z00.00 - Encounter for general adult medical examination without abnormal findings Hemoglobin A1c Today Z00.00 - Encounter for general adult medical examination without abnormal findings Patient Instructions: - Please go to the lab today to have your blood drawn. The lab is located across the [place] from our office. - Go to a pharmacy to get your flu shot and an updated COVID-19 vaccine. - Continue taking your current medications, Finasteride and Keppra, as prescribed. - You may take Tylenol if you experience a bad headache. - Keep up with your exercise routine and stay active. - We will call you if any of your blood test results are a concern. - Please schedule a follow-up appointment at the [facility] for six months from now.
[2025-04-22 11:23] VITALS: BP 128/72; PULSE 65; TEMP 36.2; O2SAT 99; BMI 29.9
--- OUTSIDE RECORDS SUMMARY | 2025-04-22 12:05 | XMS_ITS | Patient Health Record ---
Author Organization [facility] Address [address] [place] [address] Care Team Providers Care Shank Skinner Name Role Phone Cassy (RETIRED) López REEVES Primary Care Provide Joon Wagoner Unavailable [phone] Reason For Referral No Information Medications Medication SIG (Take, Route, Frequency, Duration) Notes Start Date End Date Status Colyte w Flavor Packs 240 GM Solution Reconstituted as directed Orally as directed; Duration: 1 day(s) 04/15/2014 Active levETIRAcetam 250 MG Tablet 2 tablets Or ally every 12 hrs Active Finasteride 5 MG Tablet 1 tablet Orally Once a day Active Social History Social History Additional Details Category Social Info Options Details Miscellaneous: Marital status: 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 Section Notes: Nonsmoker; no sig alcohol Problems Problem Type SNOMED Code ICD Code Onset Dates Problem Status W/U Status Risk Notes Problem Pre-surgery evaluation (005461474) Other specified pre-operative examination (V72.83) Active confirmed Problem History of adenomatous polyp of colon (662807941) History of adenomatous polyp of colon (V12.72) Active confirmed Problem Screening for malignant neoplasm of colon (760599320) Screen for colon cancer (V76.51) Active confirmed Plan Of Treatment Future Test Test Name Order Date COLONOSCOPY 04/13/2014 Insurance Providers Payer Name Payer Address Payer Phone Subscriber Number Group Number Insured Name Patient Relationship to Insured Coverage Start Date Coverage End Date [facility] [address] [facility] [place] [phone] [id number] JOON EDDY Self - patient is the insured Medical (General) History Medical History History ICD Code 03/03/2008 Colonoscopy--nega tive except for diverticulosis and internal hemorrhoids ? seizure in 2010-no problems since-sees Dr. Melara Tubular adenomas removed in 2004 BPH Denies GA,DM,CVA,Lung disease,renal dise ase Surgical History Surgery Date(Month/Year) tonsillectomy
== END 2025-04-22 11:46 | disposition home or self-care (01) ==
LOC: HO.HMCHD 11:16
PROVIDERS: PCP Internal Medicine; Visit Provider Student in an Organized Health Care Education/Training Program
DX: Z00.00 Encounter for general adult medical examination without abnormal findings (principal); G40.909 Epilepsy, unspecified, not intractable, without status epilepticus; N40.0 Benign prostatic hyperplasia without lower urinary tract symptoms; G44.209 Tension-type headache, unspecified, not intractable

== ENCOUNTER 2025-04-22 11:56 | Outpatient (REF) | payer MEDICARE, SELFPAY ==
[2025-04-22 13:59] LABS: MANUAL DIFF FLAG NO
[2025-04-22 14:17] LABS: Hematocrit 46.8 % (42.0-52.0); Hemoglobin 15.4 g/dl (14.0-18.0); Imm Gran Abs Auto 0.03 X10*3/uL (0.00-0.03); Imm Gran Pct Auto 0.4 % (0.0-0.4); Lymphocytes Absolute Auto 1.5 X10*3/uL (1.2-4.9); Mean Corpuscular HGB Conc 32.9 g/dl (31.0-36.0); Mean Corpuscular Hemoglobin 30.6 pg (27.0-33.0); Mean Corpuscular Volume 92.9 fL (80.0-98.0); NRBC Abs Auto 0.000 X10*3/uL (0.0-0.012); NRBC Pct Auto 0.0 /100WBC (0.0-0.2); Platelet Count 281 X10*3/uL (160-400); Red Blood Count 5.04 X10*6/uL (4.60-5.80); White Blood Count 7.4 X10*3/uL (4.8-10.8)
[2025-04-22 14:42] LABS: Microalbum/Creatinine Ratio Ur 7.7 ug/mg cr (<30)
[2025-04-22 14:44] LABS: Hemoglobin A1C 149.5095 umol/L
[2025-04-22 14:45] LABS: Alanine Aminotransferase 28 U/L (0-40); Albumin Level 4.4 g/dL (3.5-5.0); Alkaline Phosphatase 79 U/L (39-117); Anion Gap 8 (12-20); Aspartate Amino Transferase 33 U/L (5-37); Blood Urea Nitrogen 19 mg/dL (9-16); Calcium 9.2 mg/dL (8.4-10.2); Carbon Dioxide 26 mmol/L (22-29); Chloride 113 mmol/L (96-108); Cholesterol 145 mg/dL (<200); Estimated Glomerular Filt Rate > 60; HDL Cholesterol 33 mg/dL (>40); Potassium 4.0 mmol/L (3.3-5.1); Sodium 143 mmol/L (135-145); Total Protein 6.9 g/dL (6.5-8.0); Triglycerides 155 mg/dL (<150)
== END 2025-04-22 11:57 | disposition home or self-care (01) ==
LOC: HO.10HDL 11:56
PROVIDERS: Visit Provider Student in an Organized Health Care Education/Training Program
DX: Z00.00 Encounter for general adult medical examination without abnormal findings (principal); Z13.0 Encounter for screening for diseases of the blood and blood-forming organs and certain disorders involving the immune mechanism; Z13.29 Encounter for screening for other suspected endocrine disorder; Z13.1 Encounter for screening for diabetes mellitus; Z13.6 Encounter for screening for cardiovascular disorders; Z13.21 Encounter for screening for nutritional disorder
CPT/HCPCS: 36415; 80053; 80061; 82043; 82306; 82570; 83036; 84443; 85025